=== PATIENT | male | born 1965 | race Caucasian/White ===

== ENCOUNTER → 2017-01-20 | Day surgery (SDC) | payer BC ==
[~2017-01-20] VITALS: Ht 165.1 cm; Wt 133.8 kg
[~2017-01-20] MED LIST: ACETAMINOPHEN-1 EAC1 PO; FENOFIBRATE160 MG PO; HYDROCHLOROTH12.5 M1 PO; METFORMIN HCL500 MG PO; NABUMETONE 500500 M1 PO; NORVASC 2.5 MG2.5 MG PO; TOPROL XL50 MG PO
--- NOTE | ~2017-01-20 | EKG ---
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 : 1965 Requested By: Brian Duvall Order Number: [id number] MD: Silvino Barrett Measurements Intervals [place] Rate: 102 P: TX: QRS: 42 QRSD: 96 T: 35 QT: 344 QTc: 449 Interpretive Statements Atrial fibrillation Abnormal R-wave progression, early transition Compared to ECG 05/28/2015 11:07:13 Sinus bradycardia no longer present Electronically Signed On 01-20-2017 8:01:34 CDT by Silvino Barrett [email or web address] <ELECTRONICALLY SIGNED> By: Silvino Barrett MD, [facility] 01/20/17 0801 0632 1 Silvino Barrett MD, FACC /EPI
--- NOTE | ~2017-01-20 | EKG ---
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
[2017-01-20 07:02] VITALS: BP 156/93
== END ==
LOC: OR → TBA 05:24 → OR 05:24
DX: I48.91 Unspecified atrial fibrillation (principal); Z53.8 Procedure and treatment not carried out for other reasons
CPT/HCPCS: 50010

== ENCOUNTER → 2017-02-27 | Outpatient (CLI) | payer BC ==
[~2017-02-27] VITALS: Ht 165.1 cm; Wt 145.1 kg
[~2017-02-27] MED LIST changes: +LOTREL 10-40 M1 EACH PO; +XARELTO20 MG PO
[2017-02-27 10:43] VITALS: BP 145/100
[2017-02-27 10:47] LABS: HEMOGLOBIN 15.1 gm/dL (14.0-18.0); MCH 31.5 pg (26.0-34.0); MCHC 34.4 g/dL (28.0-37.0); MCV 91.7 fL (80.0-100.0); RBC 4.8 mil/uL (4.50-6.00); RDW 13.7 % (10.5-14.5); WBC 6.5 thou/uL (4.0-11.0)
[2017-02-27 10:59] LABS: CALCIUM 8.8 mg/dL (8.5-10.1); CREATININE 0.8 mg/dL (0.7-1.3); POTASSIUM 3.8 mmol/L (3.5-5.1)
[2017-02-27 11:01] LABS: APTT 28.3 Seconds (24.5-32.8); INR 1.1; PROTIME 11.4 Seconds (9.3-11.4)
[2017-02-27 11:04] LABS: ALBUMIN 3.7 g/dL (3.4-5.0); TOTAL BILIRUBIN 0.4 mg/dL (<0.1-1.0); TOTAL PROTEIN 7.5 g/dL (6.4-8.2)
== END | disposition home or self-care (01) ==
LOC: CATH 09:52
PROVIDERS: Internal Medicine Cardiovascular Disease
DX: I48.91 Unspecified atrial fibrillation (principal)
CPT/HCPCS: 62110; 62900